=== PATIENT | male | born 1935 | race Caucasian/White ===

== ENCOUNTER 2016-09-26 09:43 | Inpatient (IN) | payer OTHER ==
[~2016-09-26] VITALS: Ht 177.8 cm; Wt 131.1 kg
[2016-09-26 10:39] LABS: HEMATOCRIT 33.1 % (38.0-50.0); MCH 31.6 PG (29.0-34.0); MCHC 33.2 G/DL (30.0-36.0); MCV 95.1 FL (86-99); MEAN PLAT.VOLUME 10.8 uM^3 (9.0-12.4); PLATELET COUNT 137 K/uL (156-360); RBC DIS.WIDTH-SD 42.8 % (39-53); RED BLOOD COUNT 3.48 M/uL (4.00-5.50); WHITE BLOOD COUNT 7.5 K/uL (4.1-10.2)
[2016-09-26 10:48] LABS: CHLORIDE 98 mEq/L (99-109); POTASSIUM 3.9 mEq/L (3.7-5.4)
[2016-09-26 10:49] LABS: SODIUM 138 mEq/L (136-147)
[2016-09-26 10:50] LABS: GLUCOSE 136 mg/dL (70-99)
[2016-09-26 10:52] LABS: ANION GAP 11 MEQ/L (2-14)
[2016-09-26 10:54] LABS: GFR ESTIMATE (CALCULATED) 44 mL/min/
[2016-09-26 10:55] LABS: UREA NITROGEN (BUN) 38 mg/dL (9-23)
[2016-09-26 11:02] LABS: TROP-I INTERPRETATION NEGATIVE; TROPONIN-I 0.06 ng/mL (0.0-0.30)
[2016-09-26 12:19] LABS: BASE EXCESS 3.7 mEq/L (-3 to +3); BICARBONATE 34.3 mEq/L (22-26); CARBOXY HGB 2.6 % (0-5); COMMENTS - BLOOD GASES A+C+; DEVICE NC; METHEMOGLOBIN 1.1 % (0-1.5); O2 FLOW 4 L/MIN; PCO2 92 mm Hg (35-45); PO2 85 mm Hg (80-100); SITE RR; pH 7.18 (7.35-7.45)
[2016-09-26 13:12] LABS: BASE EXCESS 4.4 mEq/L (-3 to +3); BICARBONATE 32.2 mEq/L (22-26); CARBOXY HGB 2.4 % (0-5); COMMENTS - BLOOD GASES A+C+; DEVICE 840; FI02 50 %; MECHANICAL RATE 18 resp/min; METHEMOGLOBIN 1.3 % (0-1.5); MODE AC; PCO2 64 mm Hg (35-45); PEEP 5 CM/H20; PO2 98 mm Hg (80-100); SITE RR; TIDAL VOLUME 500 ML; TOTAL RESP RATE 18 resp/min; pH 7.31 (7.35-7.45)
[2016-09-26] MEDS ORDERED: PIROXICAM20 MG PO (16:42)
[2016-09-26] MEDS ORDERED: ASPIR-LOW81 MG PO (16:43)
[2016-09-26] MEDS ORDERED: FUROSEMIDE20 MG PO (16:43)
[2016-09-26] MEDS ORDERED: MULTI VITAMIN1 EACH PO (16:43)
[2016-09-26] MEDS ORDERED: FOLIC ACID1 MG PO (16:43)
[2016-09-26] MEDS ORDERED: BISOPROLOL-HCT1 EACH PO (16:44)
[2016-09-26] MEDS ORDERED: AZITHROMYCIN250 MG PO (16:44)
[2016-09-26] MEDS ORDERED: TERAZOSIN HCL2 MG PO ×2 (16:45)
[2016-09-26] MEDS ORDERED: cough syrup PO (16:46)
[2016-09-26 18:16] VITALS: BP 113/53
[2016-09-26 18:30] VITALS: BP 113/53
[2016-09-26 19:57] LABS: METH RESISTANT S AUREUS PCR NEGATIVE (NEGATIVE)
[2016-09-26 19:58] LABS: PROBE CHECK PASS; SPECIMEN PROCESSING CONTROL PASS
[2016-09-26 20:00] VITALS: BP 115/60
[2016-09-26 21:00] VITALS: BP 120/64
[2016-09-26 22:00] VITALS: BP 110/60
[2016-09-26 23:00] VITALS: BP 164/65
[2016-09-27] VITALS (24 sets, daily range): BP systolic 107–138; BP diastolic 51–70
[2016-09-27 05:46] LABS: MEAN PLAT.VOLUME 11.1 uM^3 (9.0-12.4); PLATELET COUNT 136 K/uL (156-360)
[2016-09-27 06:39] LABS: MCH 30.8 PG (29.0-34.0); MCHC 32.3 G/DL (30.0-36.0); MCV 95.4 FL (86-99); RBC DIS.WIDTH-CV 13.2 % (11.8-14.6); RBC DIS.WIDTH-SD 46.2 % (39-53); RED BLOOD COUNT 3.25 M/uL (4.00-5.50); WHITE BLOOD COUNT 7.7 K/uL (4.1-10.2)
[2016-09-27 06:42] LABS: ANION GAP 6 MEQ/L (2-14); CHLORIDE 100 MEQ/L (99-109); GFR ESTIMATE (CALCULATED) 52 mL/min/; GLUCOSE 148 mg/dL (70-99); MAGNESIUM 2.4 mg/dl (1.3-2.7); POTASSIUM 3.8 MEQ/L (3.7-5.4); SAMPLE HEMOLYSIS CHECK 0; SAMPLE ICTERIC CHECK 0; SAMPLE LIPEMIA CHECK 0; SODIUM 138 MEQ/L (136-147); UREA NITROGEN (BUN) 33 mg/dL (9-23)
[2016-09-27 06:45] LABS: DELETE MACHINE DIFF? YES
[2016-09-27 07:05] LABS: PLAT.SUFFICIENCY DECREASED; USER ID TLN
[2016-09-27 11:13] LABS: INFLUENZA A VIRAL ANTIGEN NEGATIVE; INFLUENZA B VIRAL ANTIGEN NEGATIVE
[2016-09-27 12:34] LABS: POINT-OF-CARE METER ID UU14162636
[2016-09-27 17:44] LABS: BASE EXCESS 3.9 mEq/L (-3 to +3); BICARBONATE 31.4 mEq/L (22-26); CARBOXY HGB 1.6 % (0-5); METHEMOGLOBIN 1.8 % (0-1.5); PCO2 61 mm Hg (35-45); pH 7.32 (7.35-7.45)
[2016-09-27 17:48] LABS: COMMENTS - BLOOD GASES A+C+; DEVICE 840; FI02 40 %; MODE TC; PEEP 5 CM/H20; PO2 64 mm Hg (80-100); SITE RR; TOTAL RESP RATE 36 resp/min
[2016-09-27 18:15] LABS: POINT-OF-CARE METER ID UU14162636
[2016-09-28] VITALS (21 sets, daily range): BP systolic 120–161; BP diastolic 54–78
[2016-09-28 01:00] LABS: POINT-OF-CARE METER ID UU13113803
[2016-09-28 02:35] LABS: BASE EXCESS 6.8 mEq/L (-3 to +3); BICARBONATE 32.8 mEq/L (22-26); CARBOXY HGB 1.6 % (0-5); METHEMOGLOBIN 1.9 % (0-1.5); PO2 60 mm Hg (80-100)
[2016-09-28 02:36] LABS: COMMENTS - BLOOD GASES C+; DEVICE NC; O2 FLOW 6 L/MIN; PCO2 53 mm Hg (35-45); SITE LR; TOTAL RESP RATE 20 resp/min
[2016-09-28 05:36] LABS: EOSINOPHIL (%) 0 % (0-5); HEMATOCRIT 33.7 % (38.0-50.0); IMMATURE GRANULOCYTE (%) 1.1 % (0.0-0.7); IMMATURE GRANULOCYTE COUNT 0.1 K/uL; LYMPHOCYTE COUNT 0.5 K/uL (1.0-2.8); MCH 30.7 PG (29.0-34.0); MCHC 31.8 G/DL (30.0-36.0); MCV 96.8 FL (86-99); MEAN PLAT.VOLUME 11.3 uM^3 (9.0-12.4); MONOCYTE (%) 3.2 % (3-12); MONOCYTE COUNT 0.3 K/uL (0-0.8); NEUTROPHIL (%) 90.7 % (45-76); PLATELET COUNT 146 K/uL (156-360); RBC DIS.WIDTH-CV 13.7 % (11.8-14.6); RBC DIS.WIDTH-SD 47.7 % (39-53); RED BLOOD COUNT 3.48 M/uL (4.00-5.50); WHITE BLOOD COUNT 9.9 K/uL (4.1-10.2)
[2016-09-28 05:44] LABS: BASE EXCESS 8.1 mEq/L (-3 to +3); BICARBONATE 34.9 mEq/L (22-26); CARBOXY HGB 1.3 % (0-5); COMMENTS - BLOOD GASES C+; DEVICE VM; FI02 50 %; METHEMOGLOBIN 1.6 % (0-1.5); O2 FLOW 12 L/MIN; PCO2 59 mm Hg (35-45); PO2 76 mm Hg (80-100); SITE LR; TOTAL RESP RATE 20 resp/min; pH 7.38 (7.35-7.45)
[2016-09-28 05:58] LABS: POINT-OF-CARE METER ID UU14162636
[2016-09-28 06:33] LABS: ANION GAP 8 MEQ/L (2-14); CHLORIDE 101 MEQ/L (99-109); GFR ESTIMATE (CALCULATED) > 59 mL/min/; GLUCOSE 219 mg/dL (70-99); MAGNESIUM 2.5 mg/dl (1.3-2.7); POTASSIUM 3.7 MEQ/L (3.7-5.4); SAMPLE HEMOLYSIS CHECK 0; SAMPLE ICTERIC CHECK 0; SAMPLE LIPEMIA CHECK 0; SODIUM 142 MEQ/L (136-147); UREA NITROGEN (BUN) 33 mg/dL (9-23)
[2016-09-28 07:41] LABS: INTERNAL CONTROL VALID? YES
[2016-09-28 12:17] LABS: POINT-OF-CARE METER ID UU14162636
[2016-09-28 17:15] LABS: POINT-OF-CARE METER ID UU13113803
[2016-09-28 23:59] LABS: POINT-OF-CARE METER ID UU14174217
[2016-09-29] VITALS: BP 158/81
[2016-09-29 04:00] VITALS: BP 144/71
[2016-09-29 05:47] LABS: MCH 31.4 PG (29.0-34.0); MEAN PLAT.VOLUME 11.4 uM^3 (9.0-12.4); PLATELET COUNT 158 K/uL (156-360); RBC DIS.WIDTH-CV 13.7 % (11.8-14.6); RBC DIS.WIDTH-SD 49.5 % (39-53); RED BLOOD COUNT 3.57 M/uL (4.00-5.50); WHITE BLOOD COUNT 12.8 K/uL (4.1-10.2)
[2016-09-29 06:15] LABS: EOSINOPHIL (%) 0 % (0-5); IMMATURE GRANULOCYTE (%) 2.4 % (0.0-0.7); IMMATURE GRANULOCYTE COUNT 0.3 K/uL; LYMPHOCYTE COUNT 0.8 K/uL (1.0-2.8); MONOCYTE COUNT 0.3 K/uL (0-0.8); NEUTROPHIL (%) 88.8 % (45-76); NEUTROPHIL COUNT 11.4 K/uL (1.8-6.4)
[2016-09-29 06:20] LABS: ANION GAP 8 MEQ/L (2-14); CHLORIDE 102 MEQ/L (99-109); GFR ESTIMATE (CALCULATED) > 59 mL/min/; GLUCOSE 165 mg/dL (70-99); MAGNESIUM 2.6 mg/dl (1.3-2.7); POTASSIUM 4.4 MEQ/L (3.7-5.4); SAMPLE HEMOLYSIS CHECK 0; SAMPLE ICTERIC CHECK 0; SAMPLE LIPEMIA CHECK 0; SODIUM 144 MEQ/L (136-147); UREA NITROGEN (BUN) 36 mg/dL (9-23)
[2016-09-29 06:50] LABS: HEMATOLOGY COMMENT 1 SMEAR COMPATIBLE; PLAT.SUFFICIENCY ADEQUATE
[2016-09-29 07:00] VITALS: BP 151/86
[2016-09-29 12:00] VITALS: BP 138/71
[2016-09-29 12:41] LABS: POINT-OF-CARE METER ID UU13113748
[2016-09-29 16:30] VITALS: BP 145/72
[2016-09-29 20:10] VITALS: BP 145/92
[2016-09-29 23:43] LABS: POINT-OF-CARE METER ID UU13113748
[2016-09-30] VITALS (7 sets, daily range): BP systolic 137–176; BP diastolic 70–90
[2016-09-30 06:05] LABS: HEMATOCRIT 34.3 % (38.0-50.0); MCH 31.4 PG (29.0-34.0); MCHC 31.8 G/DL (30.0-36.0); MCV 98.8 FL (86-99); MEAN PLAT.VOLUME 11.1 uM^3 (9.0-12.4); PLATELET COUNT 156 K/uL (156-360); RBC DIS.WIDTH-CV 13.7 % (11.8-14.6); RBC DIS.WIDTH-SD 49.7 % (39-53); RED BLOOD COUNT 3.47 M/uL (4.00-5.50)
[2016-09-30 06:31] LABS: ALKALINE PHOSPHATASE 60 IU/L (3-129); ANION GAP 6 MEQ/L (2-14); CHLORIDE 103 MEQ/L (99-109); GFR ESTIMATE (CALCULATED) > 59 mL/min/; GLUCOSE 149 mg/dL (70-99); MAGNESIUM 2.6 mg/dl (1.3-2.7); POTASSIUM 4.8 MEQ/L (3.7-5.4); SAMPLE HEMOLYSIS CHECK 0; SAMPLE ICTERIC CHECK 0; SAMPLE LIPEMIA CHECK 0; SODIUM 145 MEQ/L (136-147); TOTAL BILIRUBIN 0.4 MG/DL (0.0-1.0); UREA NITROGEN (BUN) 41 mg/dL (9-23)
[2016-09-30 07:10] LABS: ABS NEUTROPHIL COUNT 11.69; ANISOCYTOSIS 1+; EOSINOPHIL (%) 0 % (0-5); IMMATURE GRANULOCYTE (%) 5.5 % (0.0-0.7); IMMATURE GRANULOCYTE COUNT 0.7 K/uL; LYMPHOCYTE COUNT 0.9 K/uL (1.0-2.8); MACROCYTES OCC; MONOCYTE (%) 3.1 % (3-12); MONOCYTE COUNT 0.4 K/uL (0-0.8); NEUTROPHIL COUNT 10.9 K/uL (1.8-6.4); PLAT.SUFFICIENCY ADEQUATE; SPHEROCYTES RARE
[2016-10-01 07:21] LABS: HEMATOCRIT 35.6 % (38.0-50.0); MCH 31.2 PG (29.0-34.0); MCHC 31.7 G/DL (30.0-36.0); MCV 98.3 FL (86-99); MEAN PLAT.VOLUME 11.2 uM^3 (9.0-12.4); PLATELET COUNT 150 K/uL (156-360); RBC DIS.WIDTH-CV 13.6 % (11.8-14.6); RED BLOOD COUNT 3.62 M/uL (4.00-5.50); WHITE BLOOD COUNT 11.1 K/uL (4.1-10.2)
[2016-10-01 07:37] LABS: ALKALINE PHOSPHATASE 58 IU/L (3-129); ANION GAP 4 MEQ/L (2-14); CHLORIDE 105 MEQ/L (99-109); GFR ESTIMATE (CALCULATED) > 59 mL/min/; GLUCOSE 120 mg/dL (70-99); MAGNESIUM 2.4 mg/dl (1.3-2.7); POTASSIUM 4.5 MEQ/L (3.7-5.4); SAMPLE HEMOLYSIS CHECK 0; SAMPLE ICTERIC CHECK 0; SAMPLE LIPEMIA CHECK 0; SODIUM 144 MEQ/L (136-147); TOTAL BILIRUBIN 0.5 MG/DL (0.0-1.0); UREA NITROGEN (BUN) 38 mg/dL (9-23)
[2016-10-01 07:58] LABS: ABS NEUTROPHIL COUNT 8.85; ANISOCYTOSIS OCC; EOSINOPHIL (%) 0.1 % (0-5); IMMATURE GRANULOCYTE (%) 9.4 % (0.0-0.7); LYMPHOCYTE COUNT 0.7 K/uL (1.0-2.8); MONOCYTE (%) 7.7 % (3-12); MONOCYTE COUNT 0.9 K/uL (0-0.8); NEUTROPHIL (%) 76.8 % (45-76); NEUTROPHIL COUNT 8.5 K/uL (1.8-6.4); PLAT.SUFFICIENCY DECREASED; USER ID SDF
[2016-10-01 08:00] VITALS: BP 173/83
[2016-10-01 09:00] VITALS: BP 145/78
[2016-10-01 16:00] VITALS: BP 178/85
[2016-10-01 17:56] LABS: Estimated Average Glucose 137 mg/dL (70-123); HEMOGLOBIN A1c (GLYCOHEMOGLOB) 6.4 % HGB (Below 5.7)
[2016-10-01 19:15] VITALS: BP 183/86
[2016-10-02 00:05] VITALS: BP 141/85
[2016-10-02 04:30] VITALS: BP 159/63
[2016-10-02 06:48] LABS: HEMATOCRIT 35.3 % (38.0-50.0); MCH 30.7 PG (29.0-34.0); MCV 95.9 FL (86-99); MEAN PLAT.VOLUME 10.4 uM^3 (9.0-12.4); PLATELET COUNT 134 K/uL (156-360); RBC DIS.WIDTH-CV 13.7 % (11.8-14.6); RBC DIS.WIDTH-SD 48.3 % (39-53); RED BLOOD COUNT 3.68 M/uL (4.00-5.50)
[2016-10-02 07:15] LABS: ANION GAP 6 MEQ/L (2-14); CHLORIDE 103 MEQ/L (99-109); GFR ESTIMATE (CALCULATED) > 59 mL/min/; GLUCOSE 116 mg/dL (70-99); MAGNESIUM 2.3 mg/dl (1.3-2.7); POTASSIUM 4.2 MEQ/L (3.7-5.4); SAMPLE HEMOLYSIS CHECK 0; SAMPLE ICTERIC CHECK 0; SAMPLE LIPEMIA CHECK 0; SODIUM 145 MEQ/L (136-147); UREA NITROGEN (BUN) 30 mg/dL (9-23)
[2016-10-02 07:58] LABS: ABS NEUTROPHIL COUNT 7.27; ANISOCYTOSIS 1+; MACROCYTES 1+; MICROCYTOSIS OCC; PLAT.SUFFICIENCY ADEQUATE
[2016-10-02 07:59] LABS: DELETE MACHINE DIFF? YES
[2016-10-02 08:00] VITALS: BP 163/77
[2016-10-02] MEDS ORDERED: PREDNISONE10 MG PO (10:20)
[2016-10-02] MEDS ORDERED: ADVAIR HFA120 INHALA IH (10:20)
[2016-10-02] MEDS ORDERED: SPIRIVA RESPIMAT4 GM IH (10:20)
[2016-10-02] MEDS ORDERED: LEVAQUIN750 MG PO (10:21)
== END 2016-10-02 13:09 | disposition home or self-care (01) | DRG 208 ==
LOC: EME → EDBD 09:43 → EME 09:43 → EDOF 14:18 → 4WEST 14:18 → 2EASTP 14:18 → 4WEST 18:16 → 2EASTP 09-30 13:36
PROVIDERS: Emergency Medicine; Hospitalist; Internal Medicine; Internal Medicine Nephrology; Internal Medicine Pulmonary Disease; Surgery
PROC: 5A1935Z Respiratory Ventilation, Less than 24 Consecutive Hours (ICD-10-PCS; principal; 2016-09-26)
DX: J14 Pneumonia due to Hemophilus influenzae (principal); J96.02 Acute respiratory failure with hypercapnia; J96.01 Acute respiratory failure with hypoxia; J44.1 Chronic obstructive pulmonary disease with (acute) exacerbation; Z68.41 Body mass index [BMI] 40.0-44.9, adult; E11.22 Type 2 diabetes mellitus with diabetic chronic kidney disease; I12.9 Hypertensive chronic kidney disease with stage 1 through stage 4 chronic kidney disease, or unspecified chronic kidney disease; N18.2 Chronic kidney disease, stage 2 (mild); D63.1 Anemia in chronic kidney disease; M19.90 Unspecified osteoarthritis, unspecified site; N40.0 Benign prostatic hyperplasia without lower urinary tract symptoms; E66.9 Obesity, unspecified; W19.XXXA Unspecified fall, initial encounter; Z87.891 Personal history of nicotine dependence
CPT/HCPCS: 36600; 70450; 71010; 71020; 71250; 80048; 80053; 82803; 82948; 83036; 83735; 84100; 84484; 85025; 85027; 87070; 87077; 87185; 87205; 87449; 87502; 87641; 92610 GN; 93005; 94002; 94003; 94640; 94640 76; 94644; 94799; 97530 GO; 97530 GP; 99202; 99281; 99285; J0456; J0696; J1644; J1815; J1956; J2704; J2920; J2930; J3010; J7050; J7512; S0028